=== PATIENT | female | born 1975 | race Two or more races ===

== ENCOUNTER 2018-01-28 15:20 | Emergency (ER) | payer SELFPAY ==
[~2018-01-28] VITALS: Ht 165.1 cm; Wt 81.0 kg
[2018-01-28] MEDS ORDERED: METF500T4 PO (15:26)
[2018-01-28] MEDS ORDERED: ONDANSETRON 4MG ODT PO ONE (16:45)
[2018-01-28] MEDS ORDERED: HYDROCODONE/ACETAMINOPHEN 5/325MG TABLET PO ONE (16:45)
[2018-01-28 18:28] VITALS: BP 127/65
== END 2018-01-28 18:34 | disposition home or self-care (01) ==
LOC: ER 15:20
DX: M25.552 Pain in left hip (principal); E11.9 Type 2 diabetes mellitus without complications; W01.0XXA Fall on same level from slipping, tripping and stumbling without subsequent striking against object, initial encounter; Y93.89 Activity, other specified; Y92.89 Other specified places as the place of occurrence of the external cause; Y99.8 Other external cause status
CPT/HCPCS: 74176; 81025; 99284; Q0162

== ENCOUNTER 2019-11-15 15:02 | Emergency (ER) | payer MEDICAID ==
[~2019-11-15] VITALS: Ht 152.4 cm; Wt 84.0 kg
[~2019-11-15 15:02] MED LIST: METF-414 PO
[2019-11-15] MEDS ORDERED: KETOROLAC 30MG/ML VIAL IV STA (18:22)
[2019-11-15] MEDS ORDERED: MORPHINE SULFATE 4 MG/ML CPJ (NOT FOR IM USE) IV STA (18:22)
[2019-11-15] MEDS ORDERED: SODIUM CHLORIDE 0.9% 1,000 ML IV ONE (18:22)
[2019-11-15] MEDS ORDERED: ONDANSETRON HCL 4MG/2ML INJ IV STA (18:22)
[2019-11-15 19:12] LABS: HEMATOCRIT. 40.2 % (36.0-48.0); HEMOGLOBIN. 13.3 g/dL (12.0-16.0); MEAN CORPUSCULAR VOLUME 90.6 fL (81.0-99.0); PLATELET 249 x1000/uL (130-400); RED BLOOD CELL COUNT 4.44 mill/uL (4.2-5.4); RED CELL DISTRIBUTION WIDTH 12.8 % (11.6-14.6)
[2019-11-15 19:18] LABS: CHLORIDE 105 mEq/L (98-107)
[2019-11-15 19:21] LABS: PARTIAL THROMBOPLASTIN TIME 28.9 sec (23.4-31.0); PROTHROMBIN TIME 10.7 sec (9.6-11.0)
[2019-11-15 19:22] LABS: ETHANOL BLOOD < 10 mg/dL
[2019-11-15 19:28] LABS: PLATELET ESTIMATE NORMAL
[2019-11-15 19:30] LABS: HCG SCREEN NEGATIVE
[2019-11-15 20:03] LABS: CLARITY URINE CLEAR (CLEAR); COLOR URINE YELLOW (YELLOW); KETONES URINE NEGATIVE (NEGATIVE); LEUKOCYTE ESTERASE URINE TRACE (NEGATIVE); NITRITE URINE NEGATIVE (NEGATIVE); OCCULT BLOOD URINE NEGATIVE (NEGATIVE); PROTEIN URINE NEGATIVE (NEGATIVE); SPECIFIC GRAVITY URINE 1.014 (1.005-1.030); UROBILINOGEN URINE 0.2 E.U./dL (0.2-1.0)
[2019-11-15 20:18] LABS: *AMPHETAMINES SCREEN URINE NEGATIVE (NEGATIVE); *BARBITURATES SCREEN URINE NEGATIVE (NEGATIVE); *BENZODIAZEPINES SCREEN URINE NEGATIVE (NEGATIVE)
[2019-11-15 20:19] LABS: *COCAINE SCREEN URINE NEGATIVE (NEGATIVE); CANNABINOID URINE SCREEN NEGATIVE (NEGATIVE); METHADONE URINE SCREEN NEGATIVE (NEGATIVE); OPIATES URINE SCREEN NEGATIVE (NEGATIVE); PHENCYCLIDINE URINE SCREEN NEGATIVE (NEGATIVE)
[2019-11-15] MEDS ORDERED: MAGNESIUM/ALUMINUM HYDROXIDE/SIMETHICONE 30ML UDC PO ONE (20:45)
[2019-11-15 23:00] VITALS: BP 102/61
== END 2019-11-15 23:00 | disposition home or self-care (01) ==
LOC: ER 15:02 → CANBEDREQ 11-16 01:01
DX: R10.13 Epigastric pain (principal); R19.7 Diarrhea, unspecified; R11.2 Nausea with vomiting, unspecified; E11.9 Type 2 diabetes mellitus without complications; Z79.84 Long term (current) use of oral hypoglycemic drugs; Z98.890 Other specified postprocedural states
CPT/HCPCS: 36415; 71045; 74176; 80053; 80305; 80320; 81003; 82962; 83605; 83690; 83880; 84484; 84703; 85025; 85610; 85730; 87040; 87086; 93005; 96361; 96374; 96375; 99284; J1885; J2270; J2405; J7030; Z7610; G0480